=== PATIENT | female | born 2000 | race Caucasian/White ===

== ENCOUNTER 2018-07-01 21:21 | Emergency (ER) | payer OTHER ==
[~2018-07-01] VITALS: Ht 157.5 cm; Wt 81.0 kg
[2018-07-01 21:27] VITALS: BP 123/90
--- NOTE | 2018-07-01 21:27 | NUR ---
TO BED # 12 AMBULATORY
--- NOTE | 2018-07-01 21:42 | NUR ---
PT MOVED TO BED 9
--- NOTE | 2018-07-01 21:45 | NUR ---
PT BIB BOYFRIEND C/O LLQ PAIN. PT STATES PAIN STARTED AFTER INTERCOURSE X2 HOURS AGO, STATES 9/10 CONSTANT SHARP PAIN, +TENDERNESS. DENIES TAKING MEDICATION FOR RELIEF. PT DENIES N/V/D, OR VAGINAL BLEEDING. LBM: 06/30/18, LMP: 06/28/18. BOWELS SOUND ACTIVE X4 QUAD. PT IN BED; BED IN LOWER LOCKED POSITION. PENDING ER MD HOLLAND. WILL CONTINUE TO MONITOR. PMH: DENIES
--- NOTE | 2018-07-01 21:45 | NUR ---
PT BIB BOYFRIEND C/O LLQ PAIN. PT STATES PAIN STARTED AFTER INTERCOURSE X2 HOURS AGO, STATES 11/07 CONSTANT SHARP PAIN, +TENDERNESS. DENIES TAKING MEDICATION FOR RELIEF. PT DENIES N/V/D, OR VAGINAL BLEEDING. LBM: 06/30/18, LMP: 06/28/18. BOWELS SOUND ACTIVE X4 QUAD. PT IN BED; BED IN LOWER LOCKED POSITION. PENDING ER MD HOLLAND. WILL CONTINUE TO MONITOR. PMH: DENIES Addendum: 07/01/18 at 2159 by [email or web address] amend
--- NOTE | 2018-07-01 21:50 | NUR ---
DR. SOTO AT BEDSIDE FOR EVALUATION.
--- NOTE | 2018-07-01 21:50 | NUR ---
Shantal ferrari in [facility] - 07/01/18 at [address] Booth evaluating patient at bedside.
[2018-07-01] MEDS ORDERED: KETOROLAC 60 MG/2 ML VIAL IM ONE (22:05)
--- NOTE | 2018-07-01 22:25 | NUR ---
US AT BEDSIDE.
--- NOTE | 2018-07-01 23:06 | NUR ---
X-Ray at bedside.
--- NOTE | 2018-07-01 23:40 | NUR ---
Patient discharged with v/s stable. Patient acting appropriatly, states pain has decreaed to 3/10 and states ready to go home. Written and verbal after care instructions given and explained. Patient alert, oriented and verbalized understanding of instructions. Ambulatory with steady gait. All questions addressed prior to discharge. ID band removed. Patient advised to follow up with PMD. Rx of Motrin given. Patient educated on indication of medication including possible reaction and side effects. Opportunity to ask questions provided and answered.
[2018-07-01 23:47] VITALS: BP 119/79
== END 2018-07-01 23:40 | disposition home or self-care (01) ==
LOC: MED 21:21
DX: R10.32 Left lower quadrant pain (principal)
CPT/HCPCS: 74018; 76856; 81002; 81025; 96372; 99284; J1885; Q0092

== ENCOUNTER 2019-03-19 19:34 | Emergency (ER) | payer MEDICAID, OTHER ==
[~2019-03-19] VITALS: Ht 157.5 cm; Wt 77.1 kg
[2019-03-19 20:00] VITALS: BP 116/67
--- NOTE | 2019-03-19 20:03 | NUR ---
TO LOBBY A/W BED AMBULATORY
--- NOTE | 2019-03-19 21:24 | NUR ---
PT TAKEN TO CHAIR A
[2019-03-19 21:32] VITALS: BP 116/67
--- NOTE | 2019-03-19 21:32 | NUR ---
Patient discharged with v/s stable. Written and verbal after care instructions given and explained. Patient alert, oriented and verbalized understanding of instructions. Ambulatory with steady gait. All questions addressed prior to discharge. ID band removed. Patient advised to follow up with PMD. Rx of MACRODANTIN AND PYRIDIUM WAS given. Patient educated on indication of medication including possible reaction and side effects. Opportunity to ask questions provided and answered. DR. COLIN ASSESSED AND D/C PT.
== END 2019-03-19 21:32 | disposition home or self-care (01) ==
LOC: MED 19:34
DX: N39.0 Urinary tract infection, site not specified (principal)
CPT/HCPCS: 81002; 81025; 99283